=== PATIENT | male | born 1955 | race Caucasian/White ===

== ENCOUNTER 2017-10-07 09:52 | Inpatient (IN) | payer MEDICARE ==
[~2017-10-07 09:52] MED LIST: ACETAMINOPHEN 1,000 MG/100 ML BTL IV ONE; CELECOXIB 100 MG CAPSULE PO ONE; FAMOTIDINE 20MG TABLET PO ONE; MECLIZINE 25 MG TABLET PO ONE; METOCLOPRAMIDE 10 MG TABLET PO ONE; VANCOMYCIN HCL 1,000 MG in DEXTROSE 5 % IN WATER 250 ML IVPB ONE
[2017-10-07 11:13] LABS: ABO GROUP O; ANTIBODY SCREEN NEGATIVE (NEGATIVE); RH TYPE POSITIVE
[2017-10-07] MEDS ORDERED: AL HYDROX/MAG HYDROX 30ML UD PO PRN (12:58)
[2017-10-07] MEDS ORDERED: KETOROLAC 30 MG/ML VIAL IVP PRN ×2 (12:58)
[2017-10-07] MEDS ORDERED: ACETAMINOPHEN W/ CODEINE 300MG/60MG TABLET PO PRN ×2 (12:58)
[2017-10-07] MEDS ORDERED: NALOXONE 0.4 MG/1 ML VIAL IVP PRN (12:58)
[2017-10-07] MEDS ORDERED: PROMETHAZINE HCL 12.5 MG in 0.9 % SODIUM CHLORIDE 100ML 50 ML IVPB PRN (12:58)
[2017-10-07] MEDS ORDERED: MORPHINE SULFATE 5 MG/ML PFS IVP PRN ×3 (12:58)
[2017-10-07] MEDS ORDERED: METOCLOPRAMIDE HCL 10 MG/2 ML VIAL IVP PRN (12:58)
[2017-10-07] MEDS ORDERED: ZOLPIDEM TARTRATE 5 MG TABLET PO PRN (12:58)
[2017-10-07] MEDS ORDERED: TRAMADOL HCL 50 MG TABLET PO PRN ×2 (12:58)
[2017-10-07] MEDS ORDERED: MAGNESIUM HYDROXIDE 30 ML UDC PO PRN (12:58)
[2017-10-07] MEDS ORDERED: HYDROMORPHONE HCL 1 MG/ML SYRINGE IM PRN (12:58)
[2017-10-07] MEDS ORDERED: ACETAMINOPHEN 325 MG TAB PO PRN (12:58)
[2017-10-07] MEDS ORDERED: HYDROCODONE/APAP 5/325MG TABLET PO PRN ×2 (12:58)
[2017-10-07] MEDS ORDERED: HYDROMORPHONE HCL 2 MG/ML VIAL IM PRN (12:58)
[2017-10-07] MEDS ORDERED: BISACODYL 10 MG SUPP RC PRN (12:58)
[2017-10-07] MEDS ORDERED: HYDROCODONE/APAP 7.5/325MG TABLET PO PRN ×2 (12:58)
[2017-10-07] MEDS ORDERED: ACETAMINOPHEN W/ CODEINE 300MG/30MG TABLET PO PRN ×2 (12:58)
[2017-10-07] MEDS ORDERED: DEXTROSE 5 % AND 0.9 % NACL 1,000 ML IV PRN (15:15)
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
--- NOTE | 2017-10-07 17:23 | Rehab Evaluation ---
Patient Information - Patient Information Diagnosis: L knee OA Ordered Treatment: PT Evaluate and Treat Status: Initial Evaluation Surgery: Yes Date of Surgery: 10/07/17 Past Medical/Surgical Hx: PAST MEDICAL/SURGICAL HISTORY Past Surgical History left knee scope appendectomy; right arm sx cardiac stents 6 years ago cardiac cath x's 2 PMH - Respiratory Hx Respiratory Disorders No PMH - Cardiovascular Hx Cardiovascular Disorders Yes Hx Cardiac Catheterization Yes Hx Hypertension Yes: on meds good control Hx Coronary Stent Yes: x's 1 6 years ago Exercise Tolerance Good Comment: not too active last 3 weeks due to knee pain PMH - Neuro Hx Neurological Disorders Yes Hx Seizures Yes: x's 1 at hospital 3 years ago with anesthesia PMH - GI Hx Gastrointestinal Disorders Yes Hx Gastroesophageal Reflux Yes: controlled with meds. PMH - Hx Genitourinary Disorders No PMH - Endocrine Hx Endocrine Disorders No PMH - Musculoskeletal Hx Musculoskeletal Disorders Yes Hx Arthritis Yes: knee PMH - Psych Hx Psychiatric Problems Yes Hx Anxiety Yes: in past related to withdrawl from tramadol PMH - Hematology/Oncology Hx Hematology/Oncology No Disorders Premorbid Status: Detail (The patient was independent with all mobility prior to surgery.) Social History: Detail (The patient lives alone in a two story home with 4 stairs at the enterance and 2 railings. The patient is going to be living on the first floor. The patient's bathroom is equipped with walk in shower with no grab bar or bench and a standard toilet. The patient is employed but currently does not have a return to work date. 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 The patient has a 2 wheeled walker and a single point cane.) Precautions: Other (WBAT one the L LE.) - Time With Patient Total Time Spent With Patient (Min): 30 Treatment Procedures: Detail (Initial Evaluation, Gait training) Subjective Information - Subjective Information Per Patient (The patient had no complaints of pain. The patient did complain of " itching" throughout his 4 extremities and trunk.) Objective Data - Mental Status Patient Orientation: Oriented x3 (The patient was impulsive.) - Visual Perception Appears within normal limits for therapeutic activities - ROM Not within normal limits (The patient's LE AROM was WNL except for L knee extension 0 degrees, flexion to 90 degrees.) - Strength/Tone Within normal limits (The patient's R LE strength was WNL 5/5.), Not within normal limits (The patient's L hip and ankle strength were 5/5, knee strength was not tested secondary to status post surgery but was functional ie: the patient could acheive a SLR.) - Bed Mobility Independent (Independent with supine to and from sit transfer.) - Transfers Independent (The patient was independent with sit to and from stand transfer with verbal cueing to push up and reach for the surface.) - Balance Balance Sitting: Good Balance Standing: Fair (The patient had some unsteadiness when ambulating probably due to the effects of medications.) - Gait Detail (The patient ambulated with wheelwalker WBAT on the L LE with CG of 1 for safety plus handling of IV a distance of 52 feet.) Therapy Assessment - Therapy Assessment Detail (The patient was independent with bed mobility and transfers. The patient required CG for safety and exhibited decreased safety judgement/ impulsivity probably due to medication effects. Feel the patient will progress well with mobility.) Patient Education - Patient Education Teaching Topic: Exercise/Activity (The patient completed TKA exercises with VC of PT. Exercises included: heel slides, SLR, quad sets, hamstring sets, gluteal sets, ankle pumps.) Response: Return Demonstration Teaching Method: Handout Teaching Recipient: Patient Barriers To Learning: None Problem List - Problem List Physical Therapy Problem List: Detail (1) CG with ambulation 2) Nonambulatory on stairs 3) Decreased L LE AROM and strength as to be expected s/p surgery.) Goals - Goals Physical Therapy Goals: 1) The patient will be independent and safe with ambulation with assistive device on levels and stairs WBAT on L LE. 2) The patient will be independent and safe with all transfers. 3) The patient will be independent with HEP. Prognosis - Prognosis Good Plan - Plan Physical Therapy Plan: PT 1-2 more visits until inpatient PT goals have been met for gait training, transfer training, and instruction in HEP.
[2017-10-07] MEDS: ONDANSETRON HCL IV 4 MG/2 ML VIAL IVP PRN ×2 (17:39→22:47)
[2017-10-07] MEDS: DIPHENHYDRAMINE HCL 25 MG CAPSULE PO PRN ×2 (17:41→22:43)
[2017-10-07] MEDS: DOCUSATE SODIUM 100 MG CAPSULE PO SCH (21:21)
[2017-10-07] MEDS: GABAPENTIN 300 MG CAPSULE PO SCH (21:21)
[2017-10-07] MEDS: FERROUS SULFATE 325 MG TAB PO SCH (21:21)
[2017-10-07] MEDS ORDERED: SIMVASTATIN 20 MG TABLET PO SCH (22:00)
[2017-10-07] MEDS ORDERED: METOPROLOL TART 50 MG TABLET PO SCH (22:00)
[2017-10-07] MEDS: MORPHINE SULFATE 5 MG/ML PFS IVP PRN (22:43)
[2017-10-07] MEDS ORDERED: VANCOMYCIN HCL 1,000 MG in DEXTROSE 5 % IN WATER 250 ML IVPB SCH ×2 (23:00)
[2017-10-08] MEDS: MORPHINE SULFATE 5 MG/ML PFS IVP PRN (06:25)
[2017-10-08 06:42] LABS: HEMATOCRIT 32.1 % (42.0-52.0)
[2017-10-08] MEDS ORDERED: PANTOPRAZOLE SODIUM 40 MG TABLET PO SCH (07:00)
[2017-10-08] MEDS ORDERED: RIVAROXABAN 10 MG TABLET PO SCH (10:00)
[2017-10-08] MEDS ORDERED: HYDROCHLOROTHIAZIDE 12.5 MG CAPSULE PO SCH (10:00)
[2017-10-08] MEDS ORDERED: CELECOXIB 100 MG CAPSULE PO SCH (10:00)
[2017-10-08] MEDS ORDERED: LISINOPRIL 20 MG TABLET PO SCH (10:00)
[2017-10-08] MEDS: GABAPENTIN 300 MG CAPSULE PO SCH (10:00)
[2017-10-08] MEDS: DOCUSATE SODIUM 100 MG CAPSULE PO SCH (10:00)
[2017-10-08] MEDS: FERROUS SULFATE 325 MG TAB PO SCH (10:01)
--- NOTE | 2017-10-08 11:21 | Physical Therapy Tx Note ---
Physical Therapy Tx Note - Treatment Note Tolerated: Good Total Time Spent With Patient: 30 Physical Therapy Tx Note: Detail (Pt up in chair upon arrival; eager for therapy , awaiting discharge later this morning. Independently donned pants, socks, and shoes; declined donning shirt for now. Independently stood from chair to front wheeled walker, ambulated from bedside to stairwell, descended/ascended three steps w/handrail and folded walker w/SBA and VCs, then ambulated to end of ER/[facility] and returned to room, all w/SBA (>600 feet). Reviewed home exercise program and performed 10 reps each of heel slides, long arc quads , marching, ankle pumps. Pt is expecting home physical therapy visit tomorrow. Demonstrates good understanding of safety with mobility and of HEP; will have support from dad and daughter at home.) Physical Therapy Problem List: Detail (1) CG with ambulation 2) Nonambulatory on stairs 3) Decreased L LE AROM and strength as to be expected s/p surgery.) Physical Therapy Goals: 1) The patient will be independent and safe with ambulation with assistive device on levels and stairs WBAT on L LE - met. 2) The patient will be independent and safe with all transfers - met. 3) The patient will be independent with HEP - met. Prognosis: Good Physical Therapy Plan: Pt has met all PT goals for discharge; he is discharged from PT at this time.
[2017-10-08] MEDS ORDERED: HYDROMORPHONE HCL 2 MG/ML VIAL IV ONE (11:46)
[2017-10-08] MEDS ORDERED: *PACU ONLY* KETAMINE HCL 10 MG/ML (20ML) VIAL IV ONE (11:46)
[2017-10-08] MEDS ORDERED: BUPIVACAINE 0.75% W/EPI MPF 30ML VIAL IVP ONE (11:46)
[2017-10-08] MEDS ORDERED: NALOXONE 0.4 MG/1 ML VIAL IVP ONE (11:46)
[2017-10-08] MEDS ORDERED: VANCOMYCIN HCL 1 GM VIAL IVPB ONE (11:46)
[2017-10-08] MEDS ORDERED: FENTANYL PF 100MCG/2ML VIAL IV ONE (11:46)
[2017-10-08] MEDS ORDERED: PROPOFOL 10 MG/ML VIAL IV ONE (11:46)
[2017-10-08] MEDS ORDERED: MIDAZOLAM HCL 2MG/2ML VIAL IV ONE (11:46)
--- NOTE | 2017-10-10 12:40 | Operative Note ---
DATE OF SURGERY: 10/08/2017 Surgeon: Moo Watson MD PREOPERATIVE DIAGNOSIS: End-stage left knee arthritis. POSTOPERATIVE DIAGNOSIS: End-stage left knee arthritis. OPERATION: Left total knee arthroplasty. Anesthesia: Spinal. Anesthesia provider: KESHAWN Hassan COMPLICATIONS: None. Estimated blood loss: Minimal. OPERATIVE FINDINGS: [id number] medial compartment arthrosis. COMPONENTS PLACED: 2 g of vancomycin cement, [employer] Oxinium total knee arthroplasty system size 8 femoral component, size 8 tibial baseplate, a 10 mm thick two ply insert, and a 35 mm cemented patella component. INDICATIONS FOR OPERATION: This is a 62-year-old male with endstage knee arthroscopy on 06/04, including anti-inflammatory injection therapy. He is scheduled for the procedures above. I explained the risks and benefits to him in detail for the diagnosis and procedures, including, but not limited to, infection, nerve injury, vessel injury, pain, numbness, tingling in his knee, periprosthetic fracture, need for resection arthroplasty if components are infected or loosen, neurovascular injury, blood clot, the need for further procedures, and all of his questions were clearly answered. The course was outlined and he agreed to proceed. PROCEDURE: The patient brought to the OR, placed in the supineposition, after spinal anesthesia was induced. His left lower extremity and knee prepped and draped in sterile fashion. Prepped using Chloraprep and draped. A timeout was performed. Next, the knee is injected with 0.5% Marcaine with epi. The leg was exsanguinated with Esmarch. The knee was flexed, tourniquet inflated to 250 mmHg pressure. Next, skin and subcutaneous tissue dissected down, incised the capsule medially along the medial border of the patella to the tibial tubercle. Incised the vastus medialis in line with its fibers, in a mid vastus approach. Everted the patella, partially resected the retropatella fat pad. Drilled intracondylar drill hole. Inserted intramedullary guide marcus, 6 degree cutting block. I then cut the distal femoral condyle in a +2 mm position. We placed a sizing jig distal femoral condyle, size 8. We placed the [employer] five-in-one cutting jig through the previously placed pin holes, dialed in the anterior cut in the +2 mm position so it come out flush with the femur without notching and we cut that cut, it was a good cut, pinned it and cut the remainder of the chamfer cuts. We placed a size 8 femoral component, centered it, pinned it, removed osteophytes off of the periphery, inserted resection tool and reamed out with box, osteotome out to cruciate bone block. Next, attention turned to the tibia. Seated the spikes in the tubercle groove 2 fingerbreadths distally off the anterior tibial cortex and off the center third tibia tubercle for a slight posterior slope. We referenced for a 7 mm cut off of the higher lateral plateau, and pinned the cutting jig provisionally in placed. Rechecked the cutting jig alignment using a drop marcus centered on the tibial anatomic access, cross pinned the cutting jig to complete its fixation, and cut the tibia. We removed osteophytes of the posterior femoral condyles. Checked flexion and extension gaps and they were symmetric with a 10 mm thick poly insert, 2 to 3 mm of varus valgus laxity, overall alignment extension and with an anatomic valgus orientation. With the knee in flexion we sized tibial baseplate to size 8 again, and set the rotation tibial baseplate in extension using the alignment marcus centered on the hip joint and ankle joint, marked with electrocautery arias on the anterior tibial cortex off the laser arias on the tibial baseplate. Attention turned to the patella. We measured the patella to be 25 mm, set the cutting jig at 16 mm to allow for a 9 mm thick poly insert, we cut the patella. It was remeasured right on 16, chamfered off the lateral patellar facet, and sized to be 35, drilled 3 peg holes, placed trial patella component and then did a trial range of motion, best combination range and the patella tracked nicely in full extension and flexion to 150 degrees, with symmetric flexion extension gaps. We mixed cement. Taking the knee into flexion, seated the tibial baseplate with the previously placed electrocautery arias, pinned in place, and drilled out a keel punch and keel hole. We changed gloves and gowns, and clean sheets. Copiously irrigated with pulse lavage and antibiotic solution. I placed the bone plug in the femoral canal hole. I placed the tibial ream drill in the keel hole and then pre drilled both surfaces, in fact on the tibial component, first on the femoral component, placed trial tibial liner and held the knee in extension, clamped on the patella component until the cement hardened. Once the cement hardened, we put the knee in flexion, distracted with the bone hook and sponge, removed excess cement around the edge of the component, injected periphery medially and laterally, deep to the periosteum and the capsule with 0.5% Marcaine with epinephrine, 2 g of tranexamic acid and Exparel mixture, and then impacted on the real tibial poly insert and verified it was interlocked medially and laterally. Final range of motion and stability were the same. The patient irrigated copiously. I closed the gaps with the knee in flexion using #2 Quill suture, irrigated again and closed the skin with 2-0 Vicryl and a zipline was applied after the skin was cleaned and dried. Sterile dressings applied. An Wilberto wrap. The patient tolerated the procedure well. No complications. Sponge and needle counts correct. To recovery room stable. He will be discharged to floor and likely discharge to home tomorrow, follow up in 2 weeks. NINA
== END 2017-10-08 11:47 | disposition home health service (06) | DRG 470 ==
LOC: MEDSURG 09:52
PROVIDERS: ADMIT Orthopaedic Surgery; ATTEND Orthopaedic Surgery
PROC: 0SRD069 Replacement of Left Knee Joint with Oxidized Zirconium on Polyethylene Synthetic Substitute, Cemented, Open Approach (ICD-10-PCS; principal; 2017-10-07 12:00)
DX: M17.12 Unilateral primary osteoarthritis, left knee (principal); I10 Essential (primary) hypertension; E78.00 Pure hypercholesterolemia, unspecified
CPT/HCPCS: 85014; 85018; 86850; 86900; 86901; 94760; 97110; 97165; 97530; J2310; J2405; J3490; J7042; J7060